=== PATIENT | male | born 1970 | race Caucasian/White ===

== ENCOUNTER 2024-05-11 00:32 | Emergency (ER) | payer BC ==
[~2024-05-11] VITALS: Ht 172.7 cm; Wt 63.5 kg
[2024-05-11 00:49] VITALS: TEMP 97.8
[2024-05-11 01:26] LABS: BASOPHILS # (AUTO) 0.1 K/uL (0.0-0.2); BASOPHILS % (AUTO) 0.9 % (0.0-2.0); EOSINOPHILS # (AUTO) 0.2 K/uL (0.0-0.7); HEMATOCRIT 34 % (39-51); HEMOGLOBIN 11.5 g/dL (13.5-17.5); LYMPHOCYTES # (AUTO) 1.5 K/uL (0.8-4.8); LYMPHOCYTES % (AUTO) 25.1 % (20.0-44.0); MEAN CORPUSCULAR HEMOGLOBIN 30 PG (26.0-33.0); MEAN CORPUSCULAR HGB CONC 34 g/dl (31.0-36.0); MEAN CORPUSCULAR VOLUME 91 fL (80-96); MONOCYTES # (AUTO) 0.9 K/uL (0.1-1.30); MONOCYTES % (AUTO) 14.6 % (2.0-12.0); NEUTROPHILS # (AUTO) 3.4 K/uL (1.8-8.9); NEUTROPHILS % (AUTO) 55.4 % (43.0-81.0); PLATELET COUNT (AUTO) 282 K/uL (150-450); RED BLOOD CELL COUNT(AUTO) 3.77 MIL/uL (4.5-6.0); RED CELL DISTRIBUTION WIDTH 13.7 % (11.5-15.0); WHITE BLOOD COUNT (AUTO) 6.2 K/uL (4.3-11.0)
[2024-05-11 01:39] LABS: CALCIUM, SERUM 8.9 mg/dL (8.5-10.1); CARBON DIOXIDE 31 mmol/L (21-32); CHLORIDE 101 mmol/L (98-107); GLUCOSE 151 mg/dL (74-106); POTASSIUM 4.6 mmol/L (3.5-5.1); SODIUM SERUM 137 mmol/L (136-145); UREA NITROGEN, BLOOD 20 mg/dL (7-18)
[2024-05-11 01:40] LABS: SERUM AMMONIA 12 umol/L (11-32)
[2024-05-11 01:44] LABS: ALANINE AMINOTRANSFERASE 19 U/L (12-78); ALBUMIN 2.6 g/dL (3.4-5.0); ALCOHOL, BLOOD < 3 mg/dL (0-10); ALKALINE PHOSPHATASE 79 U/L (46-116); ASPARTATE AMINOTRANSFERASE 12 U/L (15-37); BILIRUBIN,DIRECT 0.1 mg/dL (0.0-0.2); BILIRUBIN,TOTAL 0.2 mg/dL (0.2-1.0); INR 0.95 (0.91-1.10); PROTHROMBIN TIME 10.1 SECS (9.2-11.1); TOTAL PROTEIN, SERUM 6.7 g/dL (6.4-8.2)
[2024-05-11 01:46] LABS: SALICYLATE 1.2 mg/dL (2.8-20.0)
[2024-05-11 01:47] LABS: ACETAMINOPHEN <10 ug/ml (10-30)
[2024-05-11] MEDS ORDERED: NALOXONE HCL 0.4 MG/ML AMPUL ONE (02:34)
[2024-05-11] MEDS: NALOXONE HCL 0.4 MG/ML AMPUL IV ONE (02:38)
[2024-05-11] MEDS: IV NS 0.9% 1,000 ML BAG IV ONE (02:38)
[2024-05-11 02:46] LABS: APPEARANCE,URINE CLEAR (CLEAR); BILIRUBIN,URINE NEGATIVE (NEGATIVE); BLOOD, URINE NEGATIVE Ery/uL (NEGATIVE); COLOR,URINE YELLOW (YELLOW); KETONES,URINE NEGATIVE (NEGATIVE); LEUKOCYTE ESTERASE ,URINE NEGATIVE (NEGATIVE); NITRITE, URINE NEGATIVE (NEGATIVE); PH,URINE 6.5 (5.0-8.0); PROTEIN,URINE 2+ mg/dl (NEGATIVE); UGLUCOSE 3+ mg/dL (NEGATIVE); UROBILINOGEN,URINE 0.2 EU/dL (0.2)
[2024-05-11 02:59] LABS: AMPHETAMINE, URINE NEGATIVE (NEGATIVE); BARBITURATE, URINE NEGATIVE (NEGATIVE); BENZODIAZEPINE, URINE NEGATIVE (NEGATIVE); CANNABINOID, URINE NEGATIVE (NEGATIVE); COCCAINE, URINE POSITIVE (NEGATIVE); OPIATE, URINE NEGATIVE (NEGATIVE); PHENCYCLIDINE SCREEN,URINE NEGATIVE (NEGATIVE)
[2024-05-11 03:09] LABS: ADD URINE CULTURE NO; RBC,URINE 0-2 /HPF (0-2)
[2024-05-11 03:10] LABS: BACTERIA,URINE Rare /HPF (None Seen)
[2024-05-11 05:21] VITALS: BP 114/77; O2SAT 97
[2024-05-12] MEDS ORDERED: MUPI15CR TP (09:45)
== END 2024-05-11 04:45 | disposition home or self-care (01) ==
LOC: ER 00:34
DX: T43.211A Poisoning by selective serotonin and norepinephrine reuptake inhibitors, accidental (unintentional), initial encounter (principal); R41.82 Altered mental status, unspecified; Y92.89 Other specified places as the place of occurrence of the external cause
CPT/HCPCS: 99285; 96374; 96361; 93005; 70450; 82140; 85025; 80048; 80076; 81001; 36415; 84443; 85730; 80143; 80320; 80307; J2310; J7030; A4362; A4223; G0480

== ENCOUNTER 2024-05-12 08:55 | Emergency (ER) | payer BC ==
[~2024-05-12] VITALS: Ht 175.3 cm; Wt 68.0 kg
[2024-05-12 09:26] LABS: COLOR,URINE STRAW (YELLOW)
[2024-05-12 09:27] LABS: APPEARANCE,URINE CLEAR (CLEAR); BILIRUBIN,URINE NEGATIVE (NEGATIVE); BLOOD, URINE NEGATIVE Ery/uL (NEGATIVE); KETONES,URINE NEGATIVE (NEGATIVE); LEUKOCYTE ESTERASE ,URINE NEGATIVE (NEGATIVE); NITRITE, URINE NEGATIVE (NEGATIVE); PROTEIN,URINE 2+ mg/dl (NEGATIVE); UGLUCOSE 3+ mg/dL (NEGATIVE); UROBILINOGEN,URINE 0.2 EU/dL (0.2)
[2024-05-12 09:43] LABS: ADD URINE CULTURE NO; BACTERIA,URINE Rare /HPF (None Seen); RBC,URINE 0-2 /HPF (0-2); SQUAMOUS EPITHELIAL CELL,UR None Seen /HPF (None Seen); WBC,URINE 0-2 /HPF (0-3)
[2024-05-12] MEDS ORDERED: MUPI15CR TP (09:45)
[2024-05-12 10:39] VITALS: BP 134/89; TEMP 98.2; O2SAT 100
== END 2024-05-12 09:45 | disposition home or self-care (01) ==
LOC: ER 09:07
DX: N47.2 Paraphimosis (principal); E11.9 Type 2 diabetes mellitus without complications; N48.89 Other specified disorders of penis
CPT/HCPCS: 81001